=== PATIENT | male | born 1990 | race Caucasian/White ===

== ENCOUNTER → 2023-08-03 11:15 | Outpatient (REF) | payer MEDICARE, MEDICAID, SELFPAY ==
[2023-08-03 13:07] LABS: % Basophils 1.1 % (0-2); % Eosinophils 10.1 % (0-6); % Immature Granulocytes 0.4 % (0-0.5); % Lymphocytes 22.9 % (20.5-51.1); % Monocytes 5.4 % (1.7-9.3); % Neutrophils 60.1 % (42.2-75.2); Absolute Basophils 0.2 10^3/uL (0-0.2); Absolute Eosinophils 1.5 10^3/uL (0-0.7); Absolute Immature Granulocytes 0.1 10^3/uL (0-0.05); Absolute Lymphocytes 3.4 10^3/uL (1.2-3.4); Absolute Monocytes 0.8 10^3/uL (0.1-0.6); Hematocrit 43.8 % (39.0-52.0); Hemoglobin 15.4 g/dL (13.0-18.0); Mean Corp Hgb Conc. 35.2 g/dL (33.0-37.0); Mean Corpuscular Hgb 30.1 pg (27.0-31.0); Mean Corpuscular Volume 85.7 fL (80.0-94.0); Mean Platelet Volume 9.4 fL (7.4-10.4); Nucleated Red Blood Cells % 0 % (-); Platelet Count 267 10^3/uL (130-400); Red Blood Cell Count 5.11 10^6/uL (4.70-6.10); Red Cell Dist. Width 11.6 % (11.5-14.5)
[2023-08-03 13:42] LABS: ALT (SGPT) 18 U/L (0-50); AST (SGOT) 27 U/L (17-59); Albumin 4.5 g/dl (3.5-5.0); Alkaline Phosphatase 88 U/L (38-126); Blood Urea Nitrogen 8 mg/dl (9-20); Calcium 9.3 mg/dl (8.4-10.2); Carbon Dioxide 25 mmol/L (22-30); Chloride 97 mmol/L (98-107); Glucose 77 mg/dl (70-99); HDL Cholesterol 40 mg/dl; LDL Cholesterol, Calculated 227 mg/dl; Lithium 0.7 mmol/L (0.6-1.2); Phosphorus 3.9 mg/dl (2.5-4.5); Potassium 3.8 mmol/L (3.5-5.1); Sodium 130 mmol/L (135-145); Total Cholesterol 302 mg/dl (50-199); Total Protein 7.3 g/dl (6.3-8.2); Triglyceride 175 mg/dl (10-149); Very Low Density Lipoprotein 35 mg/dl (0-30); eGFR > 60.00
[2023-08-03 14:12] LABS: TSH Reflex To Free T4 0.46 uIU/ml (0.47-4.68)
[2023-08-03 14:42] LABS: Free T4 1.48 ng/dl (0.78-2.19)
== END ==
LOC: REG 11:15
PROVIDERS: ATTENDING PHYSICIAN Registered Nurse
DX: Z79.899 Other long term (current) drug therapy (principal); E78.49 Other hyperlipidemia; Z13.29 Encounter for screening for other suspected endocrine disorder; Z04.6 Encounter for general psychiatric examination, requested by authority
CPT/HCPCS: 36415; 80053; 80061; 80069; 80178; 84439; 84443; 85025

== ENCOUNTER → 2024-01-28 08:56 | Outpatient (REF) | payer MEDICARE, OTHER, SELFPAY ==
[2024-01-28 11:50] LABS: Lithium 0.5 mmol/L (0.6-1.2)
== END ==
LOC: REG 08:56
PROVIDERS: ATTENDING PHYSICIAN Registered Nurse
DX: Z79.899 Other long term (current) drug therapy (principal)
CPT/HCPCS: 36415; 80178

== ENCOUNTER → 2024-02-18 08:30 | Outpatient (REF) | payer MEDICARE, OTHER, SELFPAY ==
[2024-02-18 10:19] LABS: Lithium 0.8 mmol/L (0.6-1.2)
== END ==
LOC: REG 08:30
PROVIDERS: ATTENDING PHYSICIAN Registered Nurse
DX: Z79.899 Other long term (current) drug therapy (principal)
CPT/HCPCS: 36415; 80178

== ENCOUNTER → 2024-05-30 14:07 | Outpatient (REF) | payer MEDICARE, OTHER, SELFPAY ==
[2024-05-30 16:07] LABS: Lithium 0.2 mmol/L (0.6-1.2)
== END ==
LOC: REG 14:07
PROVIDERS: ATTENDING PHYSICIAN Registered Nurse; REFERRING PHYSICIAN Internal Medicine
DX: Z79.899 Other long term (current) drug therapy (principal)
CPT/HCPCS: 36415; 80178

== ENCOUNTER 2024-06-26 16:21 | Emergency (ER) | payer SELFPAY ==
[2024-06-26 16:31] VITALS: BP 157/114
--- NOTE | 2024-06-26 17:25 | EDRN ---
Dr. Reddy attempting to see pt as this RN was attempting to return to see pt. Pt was not in [facility] nor was he in ED at that time.
--- NOTE | 2024-06-26 17:54 | EDRN ---
Pt arrives for an injection of his medication as he is having problems psychiatrically. Pt was on Caplita and wants his med.
--- NOTE | 2024-06-26 17:55 | EDRN ---
Pt returned to ED smelling of smoke at this time. Dr. Reddy informed and was down to see pt. Pt states that he was on Invega 234 once a month injection. Pt was changed to caplita 6 weeks ago and a reduced dose of Invega and his psychiatrist is away
at this time. Pt states invega has worn off as over a month and caplita had to be stopped r/t a bad reaction to it. Pt states he was advised w/ psychiatrist to come to ED if he had any problems so he came here. He admits to an appt on Sunday to see
his psychiatrist and get his Inveg monthly injection.
--- NOTE | 2024-06-26 17:57 | ED.GENMED ---
History of Present Illness
General
Chief Complaint: Psychiatric Problem
Source: patient
Exam Limitations: none
Time Seen by Provider: 06/26/24 17:42
History of Present Illness
History of Present Illness:
See MDM
Past History
Past History
ED Past Medical History: Psychiatric
ED Past Surgical History: None
Social History
Tobacco: Smoker
Personal: Single
Phy Exam
Physical Exam
Physical Exam:
See MDM
Course
Orders/Labs/Results
Orders:
Orders
06/26/24 17:52
Crisis Consult Urgent
Reason for Consult: depression
06/26/24 17:56
Lorazepam [Ativan] 1 mg PO NOW STA
Vital Signs
Initial and Last Documented VS:
Initial Vital Signs
Temp Pulse Resp BP Pulse Ox
99.1 F 131 20 157/114 99
06/26/24 16:31 06/26/24 16:31 06/26/24 16:31 06/26/24 16:31 06/26/24 16:31
Last Documented Vital Signs
Temp Pulse Resp BP Pulse Ox
99.1 F 113 16 129/95 98
06/26/24 16:31 06/26/24 18:05 06/26/24 18:05 06/26/24 18:05 06/26/24 18:05
MDM/Problems Addressed
Differential Diagnosis Includes:
HPI and MDM Narrative:
34-year-old male presenting to the emergency department requesting Invega shot. Patient states this shot used to work for him well. He came off of the shot over the past 6 months and was trying an alternative medication but he developed a reaction
to this medication. He does acknowledge that he can go to his psychiatric office on Sunday to get the shot but was becoming more agitated and anxious. The shot does not appear to be on formulary at the hospital. I will give him a dose of Ativan
and have crisis evaluate. Patient is very happy with the alternative solution
Patient denies suicidal or homicidal ideation
Physical exam
General: Well appearing and non-toxic
HEENT: protecting airway
Neck: appears supple
CV: No evidence of cyanosis
Resp: No accessory muscle use
Abd: Non-distended
Extremities: No deformities
Neuro: alert
Psych: Mildly agitated
Skin: Intact
Problems Addressed including Acute and Chronic Conditions affecting care:
1. Agitation
Acuity: acute
Prognosis: stable
Details: Will give dose of Ativan. The hospital does not carry Invega shots on formulary
Updates
Case discussed with crisis and they are unable to get him his shot any sooner. After hearing this, patient feels comfortable going home
Differential Diagnosis (but not limited to): Depression, medication noncompliance
Testing considered: UDS
Drug therapy (if applicable): OTC meds, please see d/c instruction regarding Rx drugs
Amount and/or Complexity of Data Reviewed
Clinical info obtained from: Patient
External data reviewed: N/A
Labs I independently reviewed (but not limited to): N/A
Radiology: N/A
Pulse Ox: not hypoxic
EKG independently reviewed: N/A
Thread Cutter Tender: N/A
Critical Care: N/A
Risk of Complication:
Social Determinants of health: Good social support
Discussed with other providers: N/A
Escalation of Care includes Admit/Obs: After being observed in the Emergency Department, pt stable for discharge.
Occasional wrong word or 'sound a like' substitutions may have occurred due to the inherent limitations of voice recognition software. Read the chart carefully and recognize, using context, where substitutions have occurred.
*Critical Care Note
Total Time (30-74mins, 75-104mins- exclusive of procedures): Not Applicable
ED Attending Note
-
Portions of this chart may have been created with voice recognition software.� Occasional wrong word or��sound alike� substitutions may have occurred due to the inherent limitations of voice recognition software.
Discharge Plan
Departure
Patient Disposition: Home (Routine Discharge)
Date of Disposition: 06/26/24
Time of Disposition: 18:26
Patient with high blood pressure during this ER visit?: No
Discharge Problem:
Anxious mood
Prescriptions:
New
lorazepam [Ativan] 1 mg tablet
1 mg PO BID PRN (Reason: anxiety) Qty: 7 0RF
No Action
No Meds [No Current Medications]
0
Referrals:
UNKNOWN - PT DOES,NOT KNOW [Family Provider] -
Activity Restrictions/Additional Instructions:
Please follow-up with your psychiatry team on Sunday to get your shot. Please return for worsening symptoms
Interventions
Interventions:
*Risk Screen - Suicide Last Done: 06/26/24 16:31
*General Assessment Last Done: 06/26/24 17:57
*Neglect/Abuse Screening Last Done: 06/26/24 16:31
ED- Fall Risk Assessment Last Done: 06/26/24 17:57
*ED COVID-19 Vaccine History Last Done: 06/26/24 17:57
ED-Psychological Assessment Last Done: 06/26/24 17:58
Discharge Date and Time
Print Language: MONTENEGRIN
[2024-06-26 17:58] VITALS: BMI 27.4
[2024-06-26] MEDS: ATIVAN 1 MG PO (18:03)
[2024-06-26 18:05] VITALS: BP 129/95
== END 2024-06-26 18:37 | disposition home or self-care (01) ==
LOC: EMR 16:21
PROVIDERS: EMERGENCY PHYSICIAN Student in an Organized Health Care Education/Training Program
DX: F41.9 Anxiety disorder, unspecified (principal); F32.A Depression, unspecified; F17.200 Nicotine dependence, unspecified, uncomplicated
CPT/HCPCS: 99282

== ENCOUNTER → 2024-07-14 07:03 | Outpatient (REF) | payer MEDICARE, OTHER, SELFPAY ==
[2024-07-14 08:19] LABS: Lithium 0.6 mmol/L (0.6-1.2)
== END ==
LOC: REG 07:03
PROVIDERS: ATTENDING PHYSICIAN Registered Nurse
DX: Z79.899 Other long term (current) drug therapy (principal)
CPT/HCPCS: 36415; 80178

== ENCOUNTER 2024-07-28 17:17 | Emergency (ER) | payer MEDICARE, OTHER, SELFPAY ==
[2024-07-28 17:37] VITALS: BP 139/100
--- NOTE | 2024-07-28 17:42 | ED.GENMED ---
ED Provider Triage
<Kenney Mcdermott PA-C - Last Filed: 07/28/24 17:43>
-
Patient seen by provider in Triage?: Seen in Triage
Attestation: A medical screening examination has been initiated by a qualified medical provider. Based on the assessment performed at this time, it has been determined that an emergent medical condition may exist and the patient has been informed
that further medical evaluation and possible additional diagnostic testing may be needed.
HPI: 34-year-old male on lithium presents with 2 weeks worth of significant and progressively worsening fatigue. Seen at the urgent care and sent here for evaluation. He denies any bleeding. No fever. He notes slight cough. He has not been
sleeping well. No short breath or pain.
Will start workup labs including CBC CMP TSH and lithium level
GENERAL: Alert , in no apparent distress
EYE: No visual abnormalities.
NECK: Trachea midline
ENT: No visible abnormalities.
LUNGS: No acute respiratory distress
NEUROLOGICAL: Alert and oriented
SKIN: Skin intact. No visible changes.
MUSCULOSKELETAL: Moving extremities normally
PSYCH: Normal and appropriate interaction.
This is a medical evaluation conducted in person to initiate diagnostic evaluation and provide initial therapeutics. Please see further documentation by the treating clinician.
History of Present Illness
<Kenney Mcdermott PA-C - Last Filed: 07/28/24 17:43>
General
Chief Complaint: Fatigue
Time Seen by Provider: 07/28/24 20:37
<Oma Juarez NP - Last Filed: 07/28/24 23:06>
General
Source: patient
Exam Limitations: none
Nursing documentation reviewed up to this point in time: agreed with
History of Present Illness
History of Present Illness:
Patient to ED with complaint of extreme fatigue. Symptoms started 2 weeks ago. Denies fever/chills recent illness. No n/v/d. No prior history of same.
Past History
<Kenney Mcdermott PA-C - Last Filed: 07/28/24 17:43>
Past History
ED Past Medical History: Psychiatric
ED Past Surgical History: None
Social History
Tobacco: Smoker
Personal: Single
Review of Systems
<Oma Juarez NP - Last Filed: 07/28/24 23:06>
Review of Systems
Allergies reviewed?: Yes
All Other Systems: ROS reviewed and negative except as documented in HPI and ROS
Constitutional: Reports fatigue
EENT: Reports no symptoms
Respiratory: Reports no symptoms
Cardiac: Reports no symptoms
ABD/GI: Reports no symptoms
: Reports no symptoms
Musculoskeletal: Reports no symptoms
Skin: Reports no symptoms
Neurological: Reports no symptoms
Psychiatric: Reports no symptoms
Phy Exam
<Oma Juarez SHOE STAINER - Last Filed: 07/28/24 23:06>
General Physical Exam
General Presentation: well appearing and no apparent distress
General age: appears stated age
General Skin: warm and dry
General Habitus: normal
General Mental: alert
Cardiovascular Exam
Cardiovascular Exam: regular rate/rhythm and no edema
Pulmonary Exam
Pulmonary Exam: lungs clear and no respiratory distress
Neurological Exam
Neurological Exam: alert, oriented x3, CN II-XII intact, no motor deficits, no sensory deficits and speech normal
Musculoskeletal Exam
Musculoskeletal Exam: full ROM and neuro vasc intact
Skin Exam
Skin Exam: normal color, warm/dry and no rash
Psychiatric Exam
Psychiatric Exam: normal mood/affect
Course
<Kenney Mcdermott PA-C - Last Filed: 07/28/24 17:43>
Orders/Labs/Results
Orders:
Orders
07/28/24 17:50
COVID-19 Antigen Urgent
Source: Nasal Swab
Complete Blood Count/With Diff Urgent
Comprehensive Metabolic Panel Urgent
[place] Urgent
TSH Reflex To Free T4 Urgent
Influenza A+B Rapid Molecular Urgent
DONG Source: Nasal Swab
Specimen Description:
07/28/24 19:50
[place] Virus Ab Panel I [S] Urgent
Comment: ADD ON
07/28/24 21:04
Add On- LAB Urgent
Tests Added?: [place] Viral panel
Abnormal Lab Results
07/28/24
17:50
WBC 14.4 H 10^3/uL
(4.8-10.8)
MCH 31.4 H pg
(27.0-31.0)
Abs Immat Gran (auto) 0.1 H 10^3/uL
(0-0.05)
Absolute Neuts (auto) 8.2 H 10^3/uL
(1.4-6.5)
Absolute Lymphs (auto) 3.9 H 10^3/uL
(1.2-3.4)
Absolute Monos (auto) 0.9 H 10^3/uL
(0.1-0.6)
Absolute Eos (auto) 1.2 H 10^3/uL
(0-0.7)
Eosinophils % 8.5 H %
(0-6)
[place] < 0.2 L mmol/L
(0.6-1.2)
07/28/24 17:50
07/28/24 17:50
Vital Signs
Initial and Last Documented VS:
Initial Vital Signs
Temp Pulse Resp BP Pulse Ox
98.8 F 104 18 139/100 98
07/28/24 17:37 07/28/24 17:37 07/28/24 17:37 07/28/24 17:37 07/28/24 17:37
Last Documented Vital Signs
Temp Pulse Resp BP Pulse Ox
98.1 F 98 18 148/88 97
07/28/24 20:18 07/28/24 20:18 07/28/24 17:37 07/28/24 20:18 07/28/24 20:18
<Oma Juarez, SHOE STAINER - Last Filed: 07/28/24 23:06>
Orders/Labs/Results
Orders:
Orders
07/28/24 17:50
COVID-19 Antigen Urgent
Source: Nasal Swab
Complete Blood Count/With Diff Urgent
Comprehensive Metabolic Panel Urgent
[place] Urgent
TSH Reflex To Free T4 Urgent
Influenza A+B Rapid Molecular Urgent
DONG Source: Nasal Swab
Specimen Description:
07/28/24 19:50
[place] Virus Ab Panel I [S] Urgent
Comment: ADD ON
07/28/24 21:04
Add On- LAB Urgent
Tests Added?: [place] Bar Viral panel
Abnormal Lab Results
07/28/24
17:50
WBC 14.4 H 10^3/uL
(4.8-10.8)
MCH 31.4 H pg
(27.0-31.0)
Abs Immat Gran (auto) 0.1 H 10^3/uL
(0-0.05)
Absolute Neuts (auto) 8.2 H 10^3/uL
(1.4-6.5)
Absolute Lymphs (auto) 3.9 H 10^3/uL
(1.2-3.4)
Absolute Monos (auto) 0.9 H 10^3/uL
(0.1-0.6)
Absolute Eos (auto) 1.2 H 10^3/uL
(0-0.7)
Eosinophils % 8.5 H %
(0-6)
[place] < 0.2 L mmol/L
(0.6-1.2)
07/28/24 17:50
07/28/24 17:50
Vital Signs
Initial and Last Documented VS:
Initial Vital Signs
Temp Pulse Resp BP Pulse Ox
98.8 F 104 18 139/100 98
07/28/24 17:37 07/28/24 17:37 07/28/24 17:37 07/28/24 17:37 07/28/24 17:37
Last Documented Vital Signs
Temp Pulse Resp BP Pulse Ox
98.1 F 98 18 148/88 97
07/28/24 20:18 07/28/24 20:18 07/28/24 17:37 07/28/24 20:18 07/28/24 20:18
ED Attending Note
<Kenney Mcdermott PA-C - Last Filed: 07/28/24 17:43>
-
Portions of this chart may have been created with voice recognition software.� Occasional wrong word or��sound alike� substitutions may have occurred due to the inherent limitations of voice recognition software.
Discharge Plan
Departure
Patient Disposition: Home (Routine Discharge)
Date of Disposition: 07/28/24
Time of Disposition: 20:55
Patient with high blood pressure during this ER visit?: No
Condition: Good
Covid-19: Not Applicable
Discharge Problem:
Fatigue
Instructions: Fatigue (DC)
Prescriptions:
No Action
No Meds [No Current Medications]
0
lorazepam [Ativan] 1 mg tablet
1 mg PO BID PRN (Reason: anxiety) Qty: 7 0RF
Activity Restrictions/Additional Instructions:
Follow up with your family doctor. Return to the emergency department for any changes in/worsening of your symptoms.
Interventions
Interventions:
*Risk Screen - Suicide Last Done: 07/28/24 17:37
*General Assessment Last Done: 07/28/24 17:37
*Neglect/Abuse Screening Last Done: 07/28/24 17:37
ED- Fall Risk Assessment Last Done: 07/28/24 21:05
*ED COVID-19 Vaccine History Last Done: 07/28/24 17:37
*Nursing Disposition Last Done: 07/28/24 21:15
Discharge Date and Time
Discharge Date/Time: 07/28/24 21:26
Print Language: TURKISH
[2024-07-28 18:06] LABS: % Basophils 0.8 % (0-2); % Eosinophils 8.5 % (0-6); % Immature Granulocytes 0.4 % (0-0.5); % Monocytes 6.5 % (1.7-9.3); % Neutrophils 56.8 % (42.2-75.2); Absolute Basophils 0.1 10^3/uL (0-0.2); Absolute Eosinophils 1.2 10^3/uL (0-0.7); Absolute Immature Granulocytes 0.1 10^3/uL (0-0.05); Absolute Lymphocytes 3.9 10^3/uL (1.2-3.4); Absolute Monocytes 0.9 10^3/uL (0.1-0.6); Absolute Neutrophils 8.2 10^3/uL (1.4-6.5); Hematocrit 43.6 % (39.0-52.0); Hemoglobin 15.3 g/dL (13.0-18.0); Mean Corp Hgb Conc. 35.1 g/dL (33.0-37.0); Mean Corpuscular Hgb 31.4 pg (27.0-31.0); Mean Corpuscular Volume 89.3 fL (80.0-94.0); Mean Platelet Volume 8.8 fL (7.4-10.4); Nucleated Red Blood Cells % 0 % (-); Platelet Count 263 10^3/uL (130-400); Red Blood Cell Count 4.88 10^6/uL (4.70-6.10); White Blood Cell Count 14.4 10^3/uL (4.8-10.8)
[2024-07-28 18:18] LABS: COVID-19 Antigen Negative (Negative)
[2024-07-28 18:20] LABS: ALT (SGPT) 22 U/L (0-50); AST (SGOT) 25 U/L (17-59); Albumin 4.8 g/dl (3.5-5.0); Alkaline Phosphatase 68 U/L (38-126); Blood Urea Nitrogen 15 mg/dl (9-20); Calcium 9.4 mg/dl (8.4-10.2); Carbon Dioxide 28 mmol/L (22-30); Chloride 100 mmol/L (98-107); Glucose 99 mg/dl (70-99); Lithium < 0.2 mmol/L (0.6-1.2); Potassium 4.4 mmol/L (3.5-5.1); Sodium 137 mmol/L (135-145); Total Bilirubin 0.6 mg/dl (0.2-1.3); Total Protein 7.6 g/dl (6.3-8.2); eGFR > 60.00
[2024-07-28 18:51] LABS: TSH Reflex To Free T4 1.02 uIU/ml (0.47-4.68)
[2024-07-28 20:17] VITALS: BP 148/88
[2024-07-28 20:18] VITALS: BP 148/88
[2024-07-30 19:25] LABS: EBV-EA (D) Ab IgG <5.0 U/mL (0.0-10.9); EBV-NA IgG >600.0 U/mL (0.0-21.9); EBV-VCA IgM Antibodies <10.0 U/mL (0.0-43.9)
== END 2024-07-28 21:26 | disposition home or self-care (01) ==
LOC: EMR 17:17
PROVIDERS: Nurse Practitioner; Physician Assistant; EMERGENCY PHYSICIAN Emergency Medicine
DX: R53.83 Other fatigue (principal); F17.200 Nicotine dependence, unspecified, uncomplicated
CPT/HCPCS: 99283; 80053; 80178; 84443; 85025; 86663; 86664; 86665; 87502; 87811

== ENCOUNTER → 2024-08-21 12:31 | Outpatient (REF) | payer MEDICARE, OTHER, SELFPAY ==
[2024-08-21 14:27] LABS: % Basophils 0.9 % (0-2); % Eosinophils 7.6 % (0-6); % Immature Granulocytes 0.3 % (0-0.5); % Lymphocytes 22.8 % (20.5-51.1); % Monocytes 6.2 % (1.7-9.3); % Neutrophils 62.2 % (42.2-75.2); Absolute Basophils 0.1 10^3/uL (0-0.2); Absolute Lymphocytes 2.9 10^3/uL (1.2-3.4); Absolute Monocytes 0.8 10^3/uL (0.1-0.6); Absolute Neutrophils 7.9 10^3/uL (1.4-6.5); Hematocrit 47.4 % (39.0-52.0); Hemoglobin 16.2 g/dL (13.0-18.0); Mean Corp Hgb Conc. 34.2 g/dL (33.0-37.0); Mean Corpuscular Hgb 30.7 pg (27.0-31.0); Mean Corpuscular Volume 89.9 fL (80.0-94.0); Nucleated Red Blood Cells % 0 % (-); Platelet Count 288 10^3/uL (130-400); Red Blood Cell Count 5.27 10^6/uL (4.70-6.10); Red Cell Dist. Width 11.7 % (11.5-14.5); White Blood Cell Count 12.7 10^3/uL (4.8-10.8)
[2024-08-21 14:54] LABS: ALT (SGPT) 31 U/L (0-50); AST (SGOT) 27 U/L (17-59); Albumin 4.6 g/dl (3.5-5.0); Alkaline Phosphatase 66 U/L (38-126); Blood Urea Nitrogen 10 mg/dl (9-20); Calcium 10.3 mg/dl (8.4-10.2); Carbon Dioxide 26 mmol/L (22-30); Chloride 103 mmol/L (98-107); Glucose 92 mg/dl (70-99); HDL Cholesterol 44 mg/dl; LDL Cholesterol, Calculated 197 mg/dl; Potassium 4.7 mmol/L (3.5-5.1); Sodium 140 mmol/L (135-145); Total Bilirubin 1.1 mg/dl (0.2-1.3); Total Cholesterol 273 mg/dl (50-199); Total Protein 7.3 g/dl (6.3-8.2); Triglyceride 160 mg/dl (10-149); Very Low Density Lipoprotein 32 mg/dl (0-30); eGFR > 60.00
[2024-08-21 15:25] LABS: TSH 0.68 uIU/ml (0.47-4.68)
[2024-08-22 09:50] LABS: Glycohemoglobin (HgbA1c) 4.7 % (4.0-5.6)
== END ==
LOC: REG 12:31
PROVIDERS: ATTENDING PHYSICIAN Registered Nurse
DX: Z04.6 Encounter for general psychiatric examination, requested by authority (principal); Z79.899 Other long term (current) drug therapy; E78.5 Hyperlipidemia, unspecified; R73.09 Other abnormal glucose; E55.9 Vitamin D deficiency, unspecified
CPT/HCPCS: 36415; 80053; 80061; 82306; 83036; 84443; 85025

== ENCOUNTER 2025-04-24 22:54 | Emergency (ER) | payer MEDICARE, OTHER, SELFPAY ==
[2025-04-24 23:28] VITALS: BP 136/92
[2025-04-25 00:01] VITALS: BP 122/73
--- NOTE | 2025-04-25 00:01 | ED.GENMED ---
History of Present Illness
<Radha Velazquez MD, Resident - Last Filed: 04/25/25 15:00>
General
Chief Complaint: Foreign Body Ingestion
Source: patient
Time Seen by Provider: 04/24/25 23:12
History of Present Illness
History of Present Illness:
35 y/o male with significant psych history presents after swallowing a home made ball made of noel, glu and metal/tin foil. He states it was an accident. He states he feels it stuck in between his jaw and his ear and initially when he came in he was
scared if he spoke or moved his head it would fall into his throat and he would choke to . When he got to the ED he realized he could speak without issue and started speaking rather than remaining silent. He clearly states this was an accident,
he was not attempting to harm himself and he regrets swallowing it. He denies any nausea, vomiting, chest pain or SOB.
Past History
<Radha Velazquez MD, Resident - Last Filed: 04/25/25 15:00>
Past History
ED Past Medical History: Psychiatric (bipolar disorder ) and Other (tourettes)
ED Past Surgical History: None
Social History
Tobacco: Smoker
Alcohol: Daily (1 shot whiskey daily )
Drug: None
Personal: Single
Living: with family
Family History
Family History: Other
Review of Systems
<Radha Velazquez MD, Resident - Last Filed: 04/25/25 15:00>
Review of Systems
Allergies reviewed?: Yes
Constitutional: Reports no symptoms
EENT: Reports other (Feels like the ball is stuck between his right jaw and ear)
Respiratory: Reports no symptoms
Cardiac: Reports no symptoms
ABD/GI: Reports no symptoms
: Reports no symptoms
Musculoskeletal: Reports no symptoms
Skin: Reports no symptoms
Neurological: Reports no symptoms
Endocrine: Reports no symptoms
Phy Exam
<Radha Velazquez MD, Resident - Last Filed: 04/25/25 15:00>
Physical Exam
Physical Exam:
General: Non-toxic, head twitching
Eyes: PERRLA
Head: atraumatic
ENT: No mass noted to be in throat, Ears clear, nothing in the nares noted
Cardiac: Regular S1, S2, no murmurs
Respiratory: Clear breath sounds bilaterally
Abdominal: Soft, non-tender, normal BSx4, non-distended
Neurological: non-focal, AAOx3
Extremities: no peripheral edema
Course
<Radha Velazquez MD, Resident - Last Filed: 04/25/25 15:00>
Orders/Labs/Results
Orders:
Orders
04/24/25 23:29
Crisis Consult Urgent
Reason for Consult: bipolar bizaire
04/25/25 00:34
CR Abdomen - 1 View Urgent
Reason For Exam: fb
CR Chest - 2 Views Urgent
Reason For Exam: fb
CR Soft Tissue Neck Urgent
Reason For Exam: fbt
Vital Signs
Initial and Last Documented VS:
Initial Vital Signs
Pulse Resp Pulse Ox
151 20 100
04/24/25 23:12 04/24/25 23:12 04/24/25 23:12
Last Documented Vital Signs
Pulse Resp BP Pulse Ox
90 18 133/91 97
04/25/25 01:15 04/25/25 01:15 04/25/25 01:00 04/25/25 01:15
<Devendra Kurtz, DO - Last Filed: 04/25/25 02:34>
Orders/Labs/Results
Orders:
Orders
04/24/25 23:29
Crisis Consult Urgent
Reason for Consult: bipolar bizaire
04/25/25 00:34
CR Abdomen - 1 View Urgent
Reason For Exam: fb
CR Chest - 2 Views Urgent
Reason For Exam: fb
CR Soft Tissue Neck Urgent
Reason For Exam: fbt
Vital Signs
Initial and Last Documented VS:
Initial Vital Signs
Pulse Resp Pulse Ox
151 20 100
04/24/25 23:12 04/24/25 23:12 04/24/25 23:12
Last Documented Vital Signs
Pulse Resp BP Pulse Ox
90 18 133/91 97
04/25/25 01:15 04/25/25 01:15 04/25/25 01:00 04/25/25 01:15
<Radha Velazquez MD, Resident - Last Filed: 04/25/25 15:00>
MDM/Problems Addressed
Differential Diagnosis Includes:
Foreign body ingestion, psychiatric episode, suicide attempt
MDM/Problems Addressed:
X-ray of abdomen, chest and throat to eval for foreign body ingestion. Vitals are stable and no N/V/D/C reassuring. Crisis for evaluation given significant psychiatric history.
<Radha Velazquez MD, Resident - Last Filed: 04/25/25 15:00>
*Pulse Oximetry
SaO2: 99
Oxygen Mode of Delivery: Room air
Patient hypoxic: no
*Critical Care Note
Total Time (30-74mins, 75-104mins- exclusive of procedures): Not Applicable
Data Reviewed
Review of Other/Old Records Reveals: Labs (08/21/24 LDL 197)
Source: patient
<Devendra Kurtz, DO - Last Filed: 04/25/25 02:34>
Update Note
Update Note:
2:30 PM update patient looks well x-rays no obvious foreign body
ED Attending Note
<Radha Velazquez MD, Resident - Last Filed: 04/25/25 15:00>
-
Portions of this chart may have been created with voice recognition software.� Occasional wrong word or��sound alike� substitutions may have occurred due to the inherent limitations of voice recognition software.
<Devendra Kurtz, DO - Last Filed: 04/25/25 02:34>
ED Attending Note
Patient seen and examined by attending physician: Yes
I performed a history and physical exam of patient and discussed management with resident, I reviewed resident's note and agree with documented findings and plan of care.: Yes
ED Attending Note:
Seen with resident examined independenty
Mentally ill male, swallowed a self-made ball of glue noel and tinfoil he was afraid that it was going to fall into his throat so he started using a sharpie pen
Been seen by crisis he has been at his baseline he just had his IM meds recently I am unable to visualize any foreign bodies posterior pharynx will check plain films
Discharge Plan
Departure
Patient Disposition: Home (Routine Discharge)
Date of Disposition: 04/25/25
Time of Disposition: 02:44
Patient with high blood pressure during this ER visit?: No
Condition: Good
Discharge Problem:
swallowed objects
Instructions: Swallowed Objects, Adult (DC)
Prescriptions:
No Action
No Meds [No Current Medications]
0
lorazepam [Ativan] 1 mg tablet
1 mg PO BID PRN (Reason: anxiety) Qty: 7 0RF
Referrals:
UNKNOWN - PT DOES,NOT KNOW [Family Provider]
Activity Restrictions/Additional Instructions:
Do not put any foreign objects in your mouth
Return to the ER if any concerns
Interventions
Interventions:
*Risk Screen - Suicide Last Done: 04/24/25 23:12
*General Assessment Last Done: 04/24/25 23:12
*ED- Fall Risk Assessment Last Done: 04/24/25 23:57
*ED COVID-19 Vaccine History Last Done: 04/24/25 23:57
*ED Influenza Vaccine History Last Done: 04/24/25 23:57
*Nursing Disposition Last Done: 04/25/25 03:09
FX-Xahdcz-Iiwcmoxrif Assessment Last Done: 04/24/25 23:55
ED- Pulmonary Assessment Last Done: 04/24/25 23:55
Discharge Date and Time
Discharge Date/Time: 04/25/25 03:09
Print Language: DANISH
[2025-04-25 01:00] VITALS: BP 133/91
== END 2025-04-25 03:09 | disposition home or self-care (01) ==
LOC: EMR 22:54
PROVIDERS: EMERGENCY PHYSICIAN Emergency Medicine
DX: T18.9XXA Foreign body of alimentary tract, part unspecified, initial encounter (principal); W44.9XXA Unspecified foreign body entering into or through a natural orifice, initial encounter; F31.9 Bipolar disorder, unspecified; F95.2 Tourette's disorder; F17.200 Nicotine dependence, unspecified, uncomplicated
CPT/HCPCS: 99283; 70360; 71046; 74018

== ENCOUNTER 2025-05-19 14:05 | Emergency (ER) | payer MEDICARE, OTHER, SELFPAY ==
[2025-05-19 14:44] VITALS: BP 140/88
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
[2025-05-19] MEDS: ATIVAN 1 MG PO (15:30)
[2025-05-19 15:44] LABS: Hematocrit 43.0 % (39.0-52.0); Hemoglobin 15.5 g/dL (13.0-18.0); Mean Corp Hgb Conc. 36.0 g/dL (33.0-37.0); Mean Corpuscular Volume 85.1 fL (80.0-94.0); Platelet Count 267 10^3/uL (130-400); Red Cell Dist. Width 12.0 % (11.5-14.5)
[2025-05-19 15:57] LABS: COVID-19 Antigen Negative (Negative)
[2025-05-19 15:58] LABS: Blood Urea Nitrogen 8 mg/dl (9-20); Calcium 9.7 mg/dl (8.4-10.2); Carbon Dioxide 28 mmol/L (22-30); Chloride 103 mmol/L (98-107); Glucose 95 mg/dl (70-99); Potassium 3.7 mmol/L (3.5-5.1); Sodium 136 mmol/L (135-145); eGFR > 60.00
[2025-05-19 15:59] LABS: Nucleated Red Blood Cells % 0 % (-)
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
[2025-05-19 18:08] VITALS: BP 119/83
--- NOTE | 2025-05-19 19:00 | EDRN ---
Portable chest xray arrived to image pt, pt exited crisis room and made his way to the triage area where he laid himself onto the ground, tore his paper scrub shirt off and then started rambling and asking to call 911. Pt refusing to get up
initially then agreed to get up in exchange for something to eat. Pt got up and did not go back to his room, pt then laid back down on the floor in front of ED room 2. Pt refusing to get up. Security assisting pt up and pt became aggressive and
security safely returned him to the crisis room 1. Pt refusing to eat a ED lunch box, this RN informed pt he was offered to look at the menu and order earlier but he refused, informed pt that the cafeteria is closed now and all we have is the ED
lunch box, pt threw the lunch box on the ground. Dr. Cordero at bedside and speaking with pt. Pt refusing to take PO medications, pt requesting to have some time to himself and sleep. Pt given a new paper scrub shirt and all objects removed from his
room for safety. Pt allowed to have a pillow, blanket, bed and paper scrubs at this time. Security requested to stay with PCT due to elopement risk and safety concern for the PCT.
--- NOTE | 2025-05-19 19:26 | EDRN ---
Pt now sleeping on bed instead of floor. Pt undressing himself but remains calm and states he doesn't need any medications at this time. Offered food and water but pt refused. PCT and security at bedside monitoring pt.
--- NOTE | 2025-05-19 21:15 | EDRN ---
Pt calm and cooperative at this time, offered pt something to eat and drink, pt understands at this time we only have the ED lunch box, pt agreeable to eating that. I informed pt he can order breakfast in the morning or we can decide tonight and
write it down, pt states 'I will eat anything you can feed me'. I asked if pt had an preferences and he shook his head. PCT and security remain at bedside.
[2025-05-20 06:40] VITALS: BP 121/80
[2025-05-20 07:23] LABS: Hematocrit 43.6 % (39.0-52.0); Hemoglobin 15.3 g/dL (13.0-18.0); Mean Corp Hgb Conc. 35.1 g/dL (33.0-37.0); Mean Corpuscular Volume 86.0 fL (80.0-94.0); Nucleated Red Blood Cells % 0 % (-); Platelet Count 237 10^3/uL (130-400); Red Cell Dist. Width 12.4 % (11.5-14.5)
[2025-05-20 07:56] VITALS: BP 126/81
== END 2025-05-20 12:55 ==
LOC: EMR 14:05
PROVIDERS: EMERGENCY PHYSICIAN Student in an Organized Health Care Education/Training Program
DX: F25.9 Schizoaffective disorder, unspecified (principal); D72.829 Elevated white blood cell count, unspecified; F31.9 Bipolar disorder, unspecified; F95.2 Tourette's disorder; F17.200 Nicotine dependence, unspecified, uncomplicated; Z91.148 Patient's other noncompliance with medication regimen for other reason
CPT/HCPCS: 99285; 80048; 80306; 85025; 86308; 87502; 87811; 93005